=== PATIENT | male | born 1965 | race Caucasian/White ===

== ENCOUNTER 2017-08-22 06:55 | Day surgery (SDC) | payer BC ==
[~2017-08-22] VITALS: Ht 177.8 cm; Wt 86.4 kg
[~2017-08-22 06:55] MED LIST: Benicar40 MG; CYCL10; DICLO GEL1 EACH; KETO15TC; LEVSOD125; NAPR500; OLME20; Percocet 5-3251 EACH; SILD25T; SIMV40; TRAM50; Viagra100 MG
[2017-08-22] MEDS ORDERED: MELO7.5 (07:25)
== END 2017-08-22 09:00 | disposition home or self-care (01) ==
LOC: ORSCSDS 06:55
PROVIDERS: Internal Medicine Gastroenterology
PROC: 0DBL8ZX Excision of Transverse Colon, Via Natural or Artificial Opening Endoscopic, Diagnostic (ICD-10-PCS; principal; 2017-08-22 08:00)
PROC: 0DBN8ZX Excision of Sigmoid Colon, Via Natural or Artificial Opening Endoscopic, Diagnostic (ICD-10-PCS; principal; 2017-08-22 08:00)
DX: Z12.11 Encounter for screening for malignant neoplasm of colon (principal); D12.3 Benign neoplasm of transverse colon; K63.5 Polyp of colon; K57.30 Diverticulosis of large intestine without perforation or abscess without bleeding; I10 Essential (primary) hypertension; Z87.891 Personal history of nicotine dependence; E78.5 Hyperlipidemia, unspecified; Z79.899 Other long term (current) drug therapy
CPT/HCPCS: 88305; J0330; J1980; J2405; J7120

== ENCOUNTER 2020-07-20 12:12 | Emergency (ER) | payer BC ==
[~2020-07-20] VITALS: Ht 175.3 cm; Wt 90.7 kg
[~2020-07-20 12:12] MED LIST changes: +MELO7.5 PO; -Percocet 5-3251 EACH; +Percocet 5-3251 EACH PO; -SIMV40; +SIMV40 PO
[2020-07-20] MEDS ORDERED: CEPH500 PO (14:54)
== END 2020-07-21 15:08 | disposition home or self-care (01) ==
LOC: ER 12:12
DX: S68.610A Complete traumatic transphalangeal amputation of right index finger, initial encounter (principal); Z79.899 Other long term (current) drug therapy; Z87.891 Personal history of nicotine dependence; Z23 Encounter for immunization; W45.8XXA Other foreign body or object entering through skin, initial encounter
CPT/HCPCS: 11740; 73140; 90471; 90714; 99283-25; A9270

== ENCOUNTER 2020-07-23 14:16 | Day surgery (SDC) | payer BC ==
[~2020-07-23] VITALS: Ht 177.8 cm; Wt 87.3 kg
[~2020-07-23 14:16] MED LIST changes: +CEPH500 PO
[2020-07-23] MEDS ORDERED: GABA300 PO (14:53)
[2020-07-23] MEDS ORDERED: BETA.05TCA TOP (14:55)
[2020-07-23] MEDS ORDERED: TELM80 PO (14:56)
[2020-07-23] MEDS ORDERED: Prilosec Otc20 MG PO (14:56)
--- NOTE | 2020-07-23 17:04 | NUR ---
07/23/20 1704 Francoise Kya (Drea PT DECLINED DELUX SLING FOR ARM.
== END 2020-07-23 17:03 | disposition home or self-care (01) ==
LOC: ORSCSDS 14:16
PROVIDERS: Orthopaedic Surgery
PROC: 0HQQXZZ Repair Finger Nail, External Approach (ICD-10-PCS; principal; 2020-07-23 16:15)
PROC: 0PS Upper Bones, Reposition (ICD-10-PCS; principal; 2020-07-23 16:15)
DX: S62.660B Nondisplaced fracture of distal phalanx of right index finger, initial encounter for open fracture (principal); E03.9 Hypothyroidism, unspecified; I10 Essential (primary) hypertension; E78.5 Hyperlipidemia, unspecified; Z79.899 Other long term (current) drug therapy
CPT/HCPCS: J0690; J2250; J2704; J3010; J7120

== ENCOUNTER 2021-04-16 10:31 | Day surgery (SDC) | payer BC ==
[~2021-04-16] VITALS: Ht 177.8 cm; Wt 88.7 kg
[~2021-04-16 10:31] MED LIST changes: +BETA.05TCA TOP; +GABA300 PO; +Prilosec Otc20 MG PO; +TELM80 PO
--- NOTE | 2021-04-16 11:18 | NUR ---
04/16/21 1118 Jeniffer Bautista PT GIVEN ROBINOL 0.2MG PRIOR TO START OF PROCEDURE FOR HR OF 43
== END 2021-04-16 11:42 | disposition home or self-care (01) ==
LOC: ORSCSDS 10:31
PROVIDERS: Internal Medicine Gastroenterology
PROC: 0DBN8ZX Excision of Sigmoid Colon, Via Natural or Artificial Opening Endoscopic, Diagnostic (ICD-10-PCS; principal; 2021-04-16 11:45)
DX: Z12.11 Encounter for screening for malignant neoplasm of colon (principal); Z86.010 Personal history of colon polyps; K63.5 Polyp of colon; K57.30 Diverticulosis of large intestine without perforation or abscess without bleeding; K64.8 Other hemorrhoids; I10 Essential (primary) hypertension; E78.00 Pure hypercholesterolemia, unspecified; Z79.899 Other long term (current) drug therapy
CPT/HCPCS: 88305; J2704; J7120

== ENCOUNTER 2024-08-23 11:09 | Day surgery (SDC) | payer BC ==
[~2024-08-23] VITALS: Ht 177.8 cm; Wt 88.3 kg
[~2024-08-23 11:09] MED LIST changes: -LEVSOD125; +LEVSOD150; +Lactated Ringer's 1,000 ML IV ONE; +propofoL 50 ML IV ONE
[2024-08-23] MEDS ORDERED: ELEMENTAL ZINC30 MG (11:28)
[2024-08-23] MEDS ORDERED: TURMERIC ROOT5000 GM (11:28)
[2024-08-23] MEDS ORDERED: LORA10ER (11:28)
[2024-08-23] MEDS ORDERED: Vitamin D1000 UNI1 (11:28)
[2024-08-23] MEDS ORDERED: Lactated Ringer's 1,000 ML IV ONE (12:06)
[2024-08-23] MEDS ORDERED: Glycopyrrolate 0.2 MG/ML 1MLVIAL ONE (13:09)
--- NOTE | 2024-08-23 14:05 | NUR ---
08/23/[address] REQUESTED EKG 12L PT WAS BRADYCARDIC PREOP, ROBYNAL GIVEN DURING PROCEDURE, PT CONTINUES TO BE RAMÓN
[2024-08-23 14:10] VITALS: BP 114/66
== END 2024-08-23 14:21 | disposition home or self-care (01) ==
LOC: ORSCSDS 11:09
PROVIDERS: Internal Medicine Gastroenterology
PROC: 0DBN8ZX Excision of Sigmoid Colon, Via Natural or Artificial Opening Endoscopic, Diagnostic (ICD-10-PCS; principal; 2024-08-23 13:00)
PROC: 0DBL8ZX Excision of Transverse Colon, Via Natural or Artificial Opening Endoscopic, Diagnostic (ICD-10-PCS; principal; 2024-08-23 13:00)
DX: Z12.11 Encounter for screening for malignant neoplasm of colon (principal); Z86.0101 Personal history of adenomatous and serrated colon polyps; Z86.0100 Personal history of colon polyps, unspecified; K63.5 Polyp of colon; D12.5 Benign neoplasm of sigmoid colon; K57.30 Diverticulosis of large intestine without perforation or abscess without bleeding; Z79.899 Other long term (current) drug therapy
CPT/HCPCS: 88305; 93005; 93010; J2704; J7120

== ENCOUNTER → 2024-11-03 | Outpatient (CLI) | payer BC ==
[~2024-11-03] MED LIST changes: +ELEMENTAL ZINC30 MG; +LORA10ER; -Lactated Ringer's 1,000 ML IV ONE; +TURMERIC ROOT5000 GM; +Vitamin D1000 UNI1; -propofoL 50 ML IV ONE
[2024-11-03 10:36] LABS: BASOPHILS ABSOLUTE AUTO 0.08 K/mm3 (0.00-0.23); BASOPHILS PERCENT AUTO 1 % (0-2); EOSINOPHILS ABSOLUTE AUTO 0.31 K/mm3 (0.00-0.68); EOSINOPHILS PERCENT AUTO 5 % (0-6); Hematocrit 44.6 % (37.0-53.0); Hemoglobin 14.9 g/dL (13.5-17.5); IMMATURE GRAN ABSOLUTE AUTO 0.05 K/mm3 (0.00-0.10); IMMATURE GRAN PERCENT AUTO 1 % (0-1); LYMPHOCYTES ABSOLUTE AUTO 1.74 K/mm3 (0.84-5.20); LYMPHOCYTES PERCENT AUTO 27 % (21-46); MONOCYTES ABSOLUTE AUTO 0.66 K/mm3 (0.16-1.47); MONOCYTES PERCENT AUTO 10 % (4-13); Mean Corpuscular HGB 29.9 pg (26.0-34.0); Mean Corpuscular HGB Conc 33.4 g/dL (31.5-36.5); Mean Corpuscular Volume 90 fL (80-100); Mean Platelet Volume 10.2 fL (9.1-12.4); NEUTROPHILS ABSOLUTE AUTO 3.51 K/mm3 (1.96-9.15); NEUTROPHILS PERCENT AUTO 55 % (41-73); Platelet Count 189 K/mm3 (150-400); RDW Coefficient Variation 14.4 % (11.7-14.2); RDW Standard Deviation 46.3 fL (35.1-46.3); Red Blood Cell Count 4.98 M/mm3 (4.30-5.90); White Blood Cell Count 6.35 K/mm3 (4.00-11.30)
[2024-11-03 10:48] LABS: Albumin, Blood 3.9 g/dL (3.4-5.0); Albumin/Globulin Ratio 1.1 (0.8-1.8); Bilirubin, Total 0.9 mg/dL (0.1-1.0); Bun/Creatinine Ratio 12.9 (12.0-20.0); Calcium, Blood 8.9 mg/dL (8.5-10.1); Creatinine, Blood 1.39 mg/dL (0.60-1.20); Globulin, Blood 3.4 g/dL (2.2-4.0); Total Protein, Blood 7.3 g/dL (6.4-8.2)
== END ==
LOC: LAB SHORT 10:32 → LAB 10:32
PROVIDERS: Physician Assistant
DX: R00.1 Bradycardia, unspecified (principal); R55 Syncope and collapse
CPT/HCPCS: 80053; 83735; 84484; 85025

== ENCOUNTER → 2025-03-21 | Outpatient (CLI) | payer BC ==
[2025-03-21 11:56] LABS: Total Iron Binding Capacity 336 ug/dL (250-450)
[2025-03-21 11:57] LABS: Ferritin, Serum 253 ng/mL (26-388); Prostate Specific Antigen 0.855 ng/mL (0.000-4.000); Thyroid Stimulating Hormone 0.604 uIU/mL (0.360-4.800)
== END ==
LOC: LAB 10:41 → LAB SHORT 10:41
PROVIDERS: Internal Medicine
DX: Z12.5 Encounter for screening for malignant neoplasm of prostate (principal); D64.9 Anemia, unspecified; E03.8 Other specified hypothyroidism; E53.8 Deficiency of other specified B group vitamins
CPT/HCPCS: 36415; 82607; 82728; 82746; 83540; 83550; 84443; G0103